=== PATIENT | female | born 1945 | race Asian ===

== ENCOUNTER 2018-08-07 09:01 | Emergency (ER) | payer OTHER ==
[~2018-08-07] VITALS: Ht 149.9 cm; Wt 47.6 kg
[2018-08-07 09:18] VITALS: Ht 149.9 cm; Wt 47.6 kg
[2018-08-07 09:38] LABS: CALCIUM 8.9 mg/dL (8.5-10.1); CHLORIDE SERUM 110 mmol/L (98-107); GLUCOSE SERUM 115 mg/dL (74-106); POTASSIUM SERUM 4.8 mmol/L (3.5-5.1); SODIUM SERUM 144 mmol/L (136-145)
[2018-08-07 09:42] LABS: ALKALINE PHOSPHATASE 55 U/L (46-116); ALT/SGPT 16 U/L (14-59); AST/SGOT 9 U/L (15-37)
[2018-08-07 09:44] LABS: TOTAL PROTEIN, SERUM 6.1 g/dL (6.4-8.2)
[2018-08-07 09:46] LABS: BASOPHIL % 0.3 % (0-2); PLATELET COUNT 145 x10^3mcL (130-400); RED CELL DISTRIBUTION WIDTH 14.4 % (11.5-14.5)
[2018-08-07 10:53] VITALS: BP 146/57
== END 2018-08-07 11:54 | disposition home or self-care (01) ==
LOC: ED 09:01
PROVIDERS: Emergency Medicine
DX: R55 Syncope and collapse (principal); R42 Dizziness and giddiness; Z88.5 Allergy status to narcotic agent
CPT/HCPCS: 36415; Q0092